=== PATIENT | male | born 1985 | race Hispanic/Latino ===

== ENCOUNTER → 2017-10-08 | Outpatient (CLI) | payer OTHER | LOC: YCFC.O 12:56 | PROVIDERS: ATTEND Nurse Practitioner Family | DX: R30.0 Dysuria (principal) ==

== ENCOUNTER 2017-10-09 10:38 | Emergency (ER) | payer SELFPAY ==
[2017-10-09] MEDS ORDERED: LACTATED RINGERS 1,000 ML IVS ONE (12:17)
[2017-10-09] MEDS ORDERED: ACETAMINOPHEN 325 MG TAB PO ONE (12:17)
--- NOTE | 2017-10-09 12:17 | ED.PDOC ---
History of Present Illness - General Chief Complaint: Back Pain or Injury Stated Complaint: low back pain Time Seen by Provider: 10/09/17 12:05 Source: patient Exam Limitations: no limitations - History of Present Illness Initial Comments: Chris Pederson 32 y/o male stated that he had been having dull low back pain,sore throat for 3 days,and constipation for the last 6 days.Had been febrile for the last 2 days and took tylenol while in alf and got released today.Denies ill contact ,no chronic medical problem,no chills ,no dysuria Timing/Duration: intermittent, other - see hpi Severity: moderate Improving Factors: nothing Worsening Factors: eating Associated Symptoms: other - see hpi Allergies/Adverse Reactions: Allergies NO KNOWN ALLERGY Allergy (Verified 10/09/17 11:30) Home Medications: Ambulatory Orders Cephalexin 1,000 mg PO BID 7 Days #30 cap 10/09/17 Review of Systems - Review of Systems Constitutional: States: fever EENTM: States: see HPI Respiratory: States: no symptoms reported Cardiology: States: no symptoms reported Gastrointestinal/Abdominal: States: see HPI Genitourinary: States: no symptoms reported Neurological: States: no symptoms reported Endocrine: States: no symptoms reported Hematologic/Lymphatic: States: no symptoms reported All other Systems: Reviewed and Negative, No Change from Baseline Past Medical History (General) - Patient Medical History Hx Stroke: No Hx Congestive Heart Failure: No Hx Diabetes: No Surgical History: no surgical history - Vaccination History Hx Influenza Vaccination: No - Social History Hx Tobacco Use: Yes Hx Alcohol Use: No Hx Substance Use: No Hx Physical Abuse: No Hx Emotional Abuse: No Family Medical History - Family History Father Family History: Unknown Living Status: Unknown Physical Exam - Physical Exam General Appearance: Alert, Comfortable, No apparent distress Eye Exam: bilateral normal Ears, Nose, Throat: hearing grossly normal, normal ENT inspection, pharyngeal erythema, tonsillar exudate, tonsillar swelling Neck: non-tender, full range of motion, supple, lymphadenopathy (R) Respiratory: chest non-tender, lungs clear, normal breath sounds, no respiratory distress Cardiovascular/Chest: normal peripheral pulses, regular rate, rhythm, no murmur Peripheral Pulses: radial,right: 2+, radial,left: 2+ Gastrointestinal/Abdominal: normal bowel sounds, non tender, soft, no organomegaly Rectal Exam: heme negative stool, other - stool rectal vault no impaction Back Exam: no CVA tenderness, no vertebral tenderness Extremity: no pedal edema Neurologic: alert, oriented x 3 Skin Exam: normal color, warm/dry Lymphatic: no adenopathy Progress - Progress Progress: 10/09/17 12:23 Vital Signs - 8 hr 10/09/17 11:27 Temperature 102.8 F H Pulse Rate [ 112 H Left Brachial] Respiratory 20 Rate Blood Pressure 139/87 [Left Arm] O2 Sat by Pulse 98 Oximetry 10/09/17 13:53 felt better after he had bowel movement no longer hurting on his belly;Wants to eat hungry called up his mom to bring food - Results/Orders Results/Orders: 10/09/17 13:09 STREP A SCREEN CULTURE Stat Laboratory Results - last 24 hr 10/09/17 10/09/17 10/09/17 11:30 12:15 12:34 WBC 16.1 H RBC 5.15 Hgb 15.5 Hct 46.0 MCV 89.4 MCH 30.1 MCHC 33.7 RDW 13.1 Plt Count 253 MPV 8.1 Absolute Neuts (auto) 13.60 H Absolute Lymphs (auto) 1.00 Absolute Monos (auto) 1.50 H Absolute Eos (auto) 0.00 Absolute Basos (auto) 0.00 Neutrophils % 84.4 H Lymphocytes % 5.9 L Monocytes % 9.4 H Eosinophils % 0.0 L Basophils % 0.3 Sodium Potassium Chloride Carbon Dioxide Anion Gap BUN Creatinine BUN/Creatinine Ratio Random Glucose Serum Osmolality Lactic Acid Calcium Urine Color Yellow Urine Appearance Clear Urine pH 6.5 Ur Specific [place] 1.025 Urine Protein 30 Urine Glucose (UA) Negative Urine Ketones Negative Urine Blood Moderate H Urine Nitrite Negative Urine Bilirubin Negative Urine Urobilinogen 1.0 Ur Leukocyte Esterase Negative Urine RBC 10-20 H Urine WBC 0-1 Ur Epithelial Cells 0-1 Amorphous Sediment 1+ Urine Bacteria 0 Urine Mucus Small Stool Occult Blood Negative Group A Strep Rapid 10/09/17 10/09/17 10/09/17 12:34 12:34 13:09 WBC RBC Hgb Hct MCV MCH MCHC RDW Plt Count MPV Absolute Neuts (auto) Absolute Lymphs (auto) Absolute Monos (auto) Absolute Eos (auto) Absolute Basos (auto) Neutrophils % Lymphocytes % Monocytes % Eosinophils % Basophils % Sodium 134 L Potassium 3.9 Chloride 96 L Carbon Dioxide 29 Anion Gap 12.9 BUN 10 Creatinine 0.93 BUN/Creatinine Ratio 10.8 Random Glucose 119 H Serum Osmolality 268.4 L Lactic Acid 1.4 Calcium 8.8 Urine Color Urine Appearance Urine pH Ur Specific [place] Urine Protein Urine Glucose (UA) Urine Ketones Urine Blood Urine Nitrite Urine Bilirubin Urine Urobilinogen Ur Leukocyte Esterase Urine RBC Urine WBC Ur Epithelial Cells Amorphous Sediment Urine Bacteria Urine Mucus Stool Occult Blood Group A Strep Rapid Negative - EKG/XRAY/CT XRAY: abdomen - no acute abnormalities lungs; retained stool no abnormal gas pattern Departure - Departure Clinical Impression: Tonsillitis Back pain Qualifiers: Back pain location: low back pain Chronicity: unspecified Back pain laterality : bilateral Sciatica presence: without sciatica Qualified Code(s): M54.5 - Low back pain Hematuria Qualifiers: Hematuria type: unspecified type Qualified Code(s): R31.9 - Hematuria, unspecified Time of Disposition: 14:24 Disposition: Discharge to Home or Self Care Condition: Good Departure Forms: ED Discharge - Pt. Copy, Patient Portal Self Enrollment Instructions: DI for Low Back Pain Diet: other - increase oral fluid intake Prescriptions: Cephalexin 1,000 mg PO BID 7 Days #30 cap Home Medications: Ambulatory Orders Cephalexin 1,000 mg PO BID 7 Days #30 cap 10/09/17 Additional Instructions: Return to emergency room as needed;Follow up with primary Md 11 Oct 2017
--- NOTE | 2017-10-09 13:48 | RAD ---
EXAM DESCRIPTION: Abdomen Flat Upright CLINICAL HISTORY: 32 years Male, fever COMPARISON: None available IMPRESSION: Upright and supine frontal views of the abdomen. There is a large amount of fecal material present throughout the colon and rectum, compatible with constipation/obstipation. There is a nonspecific, nonobstructive bowel gas pattern. No distended loops of bowel. No evidence for pneumatosis intestinalis, portal venous gas, or free air under the diaphragm. No suspicious intra-abdominal calcifications. No acute osseous abnormality. Electronically signed by: Tu Raman MD 10/09/2017 1:47 PM CDT
[2017-10-09] MEDS ORDERED: cefTRIAXone SODIUM 1 GM in SODIUM CHL 0.9% 50ML MIN-BAG+ 50 ML IVPB ONE (13:49)
--- NOTE | 2017-10-09 13:49 | RAD ---
EXAM DESCRIPTION: Chest,1 View CLINICAL HISTORY: fever COMPARISON: None Available. FINDINGS: Single frontal view the chest. Cardiomediastinal silhouette and pulmonary vascularity are within normal limits. Lungs are clear without focal consolidations. Bilateral costophrenic angles are sharp. No pneumothorax. Visualized osseous structures show no destructive lesions. IMPRESSION: No radiographic evidence for acute cardiopulmonary process. Electronically signed by: Tu Raman MD 10/09/2017 1:47 PM CDT
[2017-10-09] MEDS ORDERED: cefTRIAXone SODIUM 1 GM VIAL ONE (13:57)
[2017-10-09] MEDS ORDERED: SODIUM CHL 0.9% 50ML MIN-BAG+ 50 ML IVPB ONE (13:57)
[2017-10-09 14:03] VITALS: TEMP 100
[2017-10-09 14:34] VITALS: BP 129/77; O2SAT 99
== END 2017-10-09 14:34 | disposition home or self-care (01) ==
LOC: ER 10:38
DX: M54.5 Low back pain (principal); R31.9 Hematuria, unspecified; J03.90 Acute tonsillitis, unspecified; Z87.891 Personal history of nicotine dependence
CPT/HCPCS: 36415; 71045; 74019; 80048; 81001; 82270; 83605; 85025; 87070; 87880; J0696; J7050; J7120